=== PATIENT | female | born 1950 | race Caucasian/White ===

== ENCOUNTER → 2016-05-26 | Day surgery (SDC) | payer OTHER ==
[~2016-05-26] VITALS: Ht 165.1 cm; Wt 72.6 kg
[~2016-05-26] MED LIST: ACET-171 PO; AMLO5TAB2 PO; ASPI-973 PO; LORA10CA PO; LOSA100T29 PO; NITR25CA2 PO; PHEN97.511 PO; PRAV10TA2 PO; Sodium Chloride LOK Flush 10 mL Syringe IV PRN; fentaNYL-PF 50 mCg/mL 2 mL Inj IVPUSH PRN
[2016-05-26 08:35] VITALS: BP 118/68; PULSE 73; RESP 16; O2SAT 95
[2016-05-26] MEDS: 0.9% Sodium Chloride 1,000 ML IV SCH ×3 (08:38→09:26)
[2016-05-26 09:30] VITALS: BP 125/64; PULSE 76; RESP 14; O2SAT 98
--- NOTE | 2016-05-26 09:31 | PCM.ENDCOL ---
Colonoscopy Date of Service: May 26, 2016 Physician Salvador Meza MD Pre Procedure Diagnosis: Screening Post Procedure Dx & Findings: Polyp hemorrhoids Procedure Colonoscopy PROCEDURE IN DETAIL: Prep adequate Withdrawal time 11 minutes After unremarkable rectal examination the Olympus video colonoscope was inserted patient's anal canal and was advanced to cecum. Landmarks were identified including the ileocecal valve and appendiceal orifice. Scope was withdrawn systematically. Visualized colonic mucosa showed healthy shiny mucosa with normal healthy-appearing vasculature. In the cecum, there was a 2 cm AVM which was not bleeding. There was a 2 mm polyp in the sigmoid colon. This was removed completely using cold snare. In the rectum retroflexion was done which showed hemorrhoids. Anal canal was inspected carefully on the way out and hemorrhoids noted. 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 Patient monitoring Continuous pulse oximetry, cardiac monitoring, blood pressure monitoring, IV access, and oxygen at 2L per nasal cannula. Periprocedural Fentanyl: Fentanyl 75mcg Incrementally Midazolam: Midazolam 4mg Incrementally Complications There were no periprocedural complications identified. Post Procedure Plan Post Procedure Recommendations 1. Restrict activities today. 2. Resume normal activities in the morning. 3. Resume medications. 4. Patient informed of normal post procedure side effects as bloating, drowsiness, blood streaking in the stool. 5. average risk CRCS. If colon polyps come back as: -Hyperplastic- can repeat colonoscopy in 10 years -Tubular adenoma- repeat colonoscopy in 5 years -Tubulovillous/villous adenoma- repeat colonoscopy in 3 years -If any dysplasia- return to clinic as soon as possible 6. Please don't hesitate to call me with any questions. Salvador Meza MD May 26, 2016 09:31
[2016-05-26 09:41] VITALS: BP 120/61; PULSE 67; RESP 16; O2SAT 98
[2016-05-26 09:48] VITALS: BP 120/61; PULSE 52; RESP 14; O2SAT 98
--- NOTE | 2016-05-28 11:25 | PATH ---
SURGICAL PATHOLOGY Attending Physician:Salvador Meza M.D. CASE STATUS: Signed Out PATIENT NAME: ABDULAZIZ PENNINGTON PID: [id number] : 1950 DATE COLLECTED:05/26/2016 16:21 SPECIMEN: Colon, Biopsy CLINICAL HISTORY: 1). SIGMOID COLON POLYP FINAL DIAGNOSIS: 1.SIGMOID COLON POLYP: TUBULAR ADENOMA. ICD10 CODE D12.5 GROSS DESCRIPTION: The specimen is received in one formalin filled container labeled with the patient's name, sublabeled "sigmoid colon polyp" and consists of a 0.5 x 0.4 x 0.3 CM portion of tissue which is entirely submitted in one cassette. 05/26/2016 DAC MICRO DESCRIPTION: See diagnosis. ICD-9 CODES: CPT CODES: 1: 05367 Electronically Signed Out Nakul Fields MD [facility] Pathology [facility] [address], [place] [address] Technical component performed at [facility], [address] [place] [address] [address], [place], [address]
== END | disposition home or self-care (01) ==
LOC: END 00:32
PROVIDERS: ATTEND Internal Medicine
DX: Z12.11 Encounter for screening for malignant neoplasm of colon (principal); D12.5 Benign neoplasm of sigmoid colon; K55.20 Angiodysplasia of colon without hemorrhage; K64.9 Unspecified hemorrhoids
CPT/HCPCS: 45385; G0500; J2250; J3010; J7030